=== PATIENT | female | born 1955 | race Hispanic/Latino ===

== ENCOUNTER 2017-03-14 22:45 | Emergency (ER) | payer BC ==
[2017-03-14] MEDS ORDERED: Sodium Chloride 0.9% 1,000 ML IV STA (23:12)
--- NOTE | 2017-03-14 23:17 | C.PDOC ---
History Of Present Illness 61 y/o F c unknown PMHx BIBEMS after being found sitting on a park bench. She was reportedly calm and not disruptive. In the ED, she is awake and responds to some questions but not others. She denies pain. Full HPI and ROS unobtainable due to patient's clinical condition. Time Seen by Provider: 03/14/17 22:55 Chief Complaint (Nursing): Altered Mental Status Past Medical History Vital Signs: Last Vital Signs Temp 98.2 F 03/15/17 05:58 Pulse 72 03/15/17 05:58 Resp 20 03/15/17 05:58 BP 135/65 03/15/17 05:58 Pulse Ox 97 03/15/17 05:58 Family History: States: No Known Family Hx - Social History Hx Alcohol Use: No Hx Substance Use: No - Immunization History Hx Tetanus Toxoid Vaccination: No Hx Influenza Vaccination: No Hx Pneumococcal Vaccination: No Review Of Systems Review Of Systems: ROS cannot be obtained secondary to pt's inabilty to answer questions. Physical Exam - Physical Exam Additional Physical Exam Comments: Constitutional: Awake, alert, answers some questions, appears to begin to answer others and stops. Follows commands. Moves all extremities. Head: Normocephalic. Atraumatic. Eyes: No nystagmus. ENT: Moist mucous membranes. Neck: No midline tenderness. Cardiovascular: Regular rate. Radial pulses 2+ bilaterally. Chest: No tenderness. Respiratory: Clear to auscultation bilaterally. GI: Soft. Nontender. Nondistended. Back: No midline tenderness. Musculoskeletal: No tenderness or swelling of extremities. Skin: No rash. Neurologic: Alert, no focal deficit. ED Course And Treatment - Laboratory Results Result Diagrams: 03/14/17 23:22 03/14/17 23:22 O2 Sat by Pulse Oximetry: 98 Medical Decision Making Medical Decision Making: Patient in ED for 7.5 hours. Now awake, alert, steady gait. Will discharge. Copy of CT provided to patient for follow up purposes. Disposition - Disposition Disposition: HOME/ ROUTINE Disposition Time: 06:13 Condition: STABLE Instructions: Alcohol Intoxication (ED) Forms: [employer] ([place]) - Clinical Impression Clinical Impression: Alcohol intoxication
[2017-03-14 23:25] LABS: BASO # 0.1 K/uL (0.0-0.2); BASO % 1.2 % (0.0-2.0); EOS # 0.2 K/uL (0.0-0.7); EOS % 3.2 % (0.0-4.0); HEMATOCRIT 36.5 % (34.0-47.0); LYMPH # 1.5 K/uL (1.0-4.3); LYMPH % 23.8 % (20.0-40.0); MEAN CELL VOLUME 88.7 fL (81.0-99.0); MEAN CORPUSCULAR HEMOGLOBIN 31.1 pg (27.0-31.0); MEAN PLATELET VOLUME 7.9 fL (7.2-11.7); MONO # 0.5 K/uL (0.0-0.8); MONO % 8.5 % (0.0-10.0); NRBC % 0.1 % (0.0-2.0); RED CELL DISTRIBUTION WIDTH 13.2 % (11.5-14.5); WHITE BLOOD COUNT 6.4 K/uL (4.8-10.8)
[2017-03-14 23:42] LABS: CHLORIDE 104 mmol/L (98-107)
[2017-03-14 23:43] LABS: POTASSIUM 3.4 mmol/L (3.6-5.2); SODIUM 141 mmol/L (132-148)
[2017-03-14 23:45] LABS: BILIRUBIN,TOTAL 0.4 mg/dL (0.2-1.3); CARBON DIOXIDE 24 mmol/L (22-30); GFR AFRICAN-AMERICAN > 60
[2017-03-14 23:46] LABS: ALB/GLOB RATIO 1.3 (1.0-2.1); ALCOHOL SERUM 290 mg/dl (0-10); ALKALINE PHOSPHATASE 55 U/L (38-126); ALT/SGPT 32 U/L (9-52); AST/SGOT 36 U/L (14-36); BLOOD UREA NITROGEN 6 mg/dL (7-17); CALCIUM 8.9 mg/dl (8.6-10.4); GLUCOSE,RANDOM 94 mg/dL (65-105); TOTAL PROTEIN 7.3 g/dL (6.3-8.3)
[2017-03-14 23:51] LABS: URINE BILIRUBIN NEGATIVE (NEGATIVE); URINE BLOOD NEGATIVE (NEGATIVE); URINE COLOR Colorless (YELLOW); URINE GLUCOSE (UA) NORMAL (Normal); URINE KETONE NEGATIVE (NEGATIVE); URINE LEUKOCYTE ESTERASE NEG Leu/uL (Negative); URINE PROTEIN NEGATIVE (NEGATIVE); URINE UROBILINOGEN NORMAL mg/dL (0.2-1.0)
--- NOTE | 2017-03-15 04:06 | CT ---
EXAM: CT Head Without Intravenous Contrast EXAM DATE/TIME: 03/14/2017 11:11 PM CLINICAL HISTORY: 61 years old, female; Signs and symptoms; Altered mental status/memory loss TECHNIQUE: Axial computed tomography images of the head/brain without intravenous contrast. All CT scans at this facility use one or more dose reduction techniques, viz.: automated exposure control; ma/kV adjustment per patient size (including targeted exams where dose is matched to indication; i.e. head); or iterative reconstruction technique. COMPARISON: No relevant prior studies available. FINDINGS: There is a small approximately 5 mm cluster of calcifications in the left frontal lobe. There is no surrounding edema identified. I would first recommend correlation with priors if they exist. If they do not, then followup imaging could be performed to assess for stability. No intracranial hemorrhage. No evidence of infarct. Trace mucosal thickening left sphenoid sinus. IMPRESSION: No acute findings. Small calcification left frontal lobe as discussed above.
[2017-03-15 05:59] VITALS: BP 135/65; PULSE 72; RESP 20; TEMP 98.2
[2017-03-15 06:14] VITALS: O2SAT 98
--- NOTE | 2017-03-15 11:30 | RAD ---
HISTORY: ams COMPARISON: No prior. FINDINGS: LUNGS: No evidence of focal infiltrate or consolidation in the lungs PLEURA: No significant pleural effusion identified, no pneumothorax apparent. CARDIOVASCULAR: Normal. OSSEOUS STRUCTURES: No significant abnormalities. VISUALIZED UPPER ABDOMEN: Normal. OTHER FINDINGS: None. IMPRESSION: No active disease.
== END 2017-03-15 06:27 | disposition home or self-care (01) ==
LOC: C.ER 22:45
DX: F10.129 Alcohol abuse with intoxication, unspecified (principal)
CPT/HCPCS: 70450; 71010; 80053; 81001; 82140; 85025; 96360; 99285; G0480; J7040